=== PATIENT | female | born 1960 | race Caucasian/White ===

== ENCOUNTER 2023-03-12 09:26 | Outpatient (CLI) | payer BC ==
[2023-03-12] VITALS (18 sets, daily range): BP systolic 104–152; BP diastolic 32–80
== END 2023-03-12 23:59 | disposition home or self-care (01) ==
LOC: CARD DIAG 09:26
PROVIDERS: ATTEND Internal Medicine Interventional Cardiology
DX: R42 Dizziness and giddiness (principal); R06.02 Shortness of breath
CPT/HCPCS: 93660